=== PATIENT | male | born 1995 | race Caucasian/White ===

== ENCOUNTER 2024-07-03 17:07 | Emergency (ER) | payer BC ==
[~2024-07-03] VITALS: Ht 177.8 cm; Wt 93.8 kg
[2024-07-03 17:11] VITALS: BP 146/66; PULSE 91; RESP 16; TEMP 98.2; O2SAT 95
[2024-07-03] MEDS ORDERED: SKIN30CL4 TP (17:46)
[2024-07-03] MEDS ORDERED: PRED20TA PO (17:46)
[2024-07-03] MEDS: dexamethasone sod phosphate 10mg/ml inj IM STA (17:53)
== END 2024-07-03 18:02 | disposition home or self-care (01) ==
LOC: ER 17:08
DX: L23.7 Allergic contact dermatitis due to plants, except food (principal)
CPT/HCPCS: 96372; 99283; J1100